=== PATIENT | male | born 1960 | race Asian ===

== ENCOUNTER 2022-12-31 09:27 | Emergency (ER) | payer OTHER ==
[2022-12-31 09:32] VITALS: BP 138/56; PULSE 69; RESP 18; TEMP 97.7; BMI 25.8
[2022-12-31] MEDS ORDERED: ACETAMINOPHEN 325 MG TABLET (FP) PO ONE (12:33)
[2022-12-31] MEDS ORDERED: ACETAMINOPHEN 325 MG TABLET (FP) ONE (12:42)
== END 2022-12-31 15:23 | disposition home or self-care (01) ==
LOC: JER 09:27
DX: M79.605 Pain in left leg (principal)
CPT/HCPCS: 72131-TC; 99284-25

== ENCOUNTER 2024-03-11 13:52 | Emergency (ER) | payer OTHER ==
[2024-03-11 13:58] VITALS: BP 169/71; PULSE 77; RESP 18; TEMP 97.9; BMI 22.6
[2024-03-11] MEDS ORDERED: AMOX TR/POT CLAV 875MG/125MG TABLETS (FP) ONE (15:12)
[2024-03-11] MEDS ORDERED: ACETAMINOPHEN 500 MG TABLET (FP) ONE (15:12)
[2024-03-11] MEDS ORDERED: RABIES VACCINE (PCEC)/PF 2.5 UNIT/VIAL IM ONE (15:13)
[2024-03-11] MEDS: ACETAMINOPHEN 500 MG TABLET (FP) PO ONE (15:20)
[2024-03-11] MEDS: RABIES VACCINE (PCEC)/PF 2.5 UNIT/VIAL IM ONE (15:21)
[2024-03-11] MEDS: AMOX TR/POT CLAV 875MG/125MG TABLETS (FP) PO ONE (15:21)
[2024-03-11] MEDS ORDERED: RABIES IMMUNE GLOBULIN 300 UNITS/1 ML VIAL ONE (16:10)
[2024-03-11] MEDS: RABIES IMMUNE GLOBULIN 300 UNITS/1 ML VIAL IM ONE (16:11)
== END 2024-03-11 17:16 | disposition home or self-care (01) ==
LOC: JERFT 13:52
PROC: 3E0234Z Introduction of Serum, Toxoid and Vaccine into Muscle, Percutaneous Approach (ICD-10-PCS; principal; 2024-03-11)
DX: S61.452A Open bite of left hand, initial encounter (principal); W55.01XA Bitten by cat, initial encounter
CPT/HCPCS: 73130-TC-LT-FY; 90675; 99284-25

== ENCOUNTER 2024-03-14 07:52 | Inpatient (IN) | payer OTHER ==
[2024-03-14] MEDS ORDERED: RABIES VACCINE (PCEC)/PF 2.5 UNIT/VIAL IM ONE (08:51)
[2024-03-14] MEDS ORDERED: DIPHTH,PERTUSS(ACELL),TET 0.5 ML DISP.SYRIN IM ONE (09:00)
[2024-03-14] MEDS: RABIES VACCINE (PCEC)/PF 2.5 UNIT/VIAL IM ONE (09:10)
[2024-03-14] MEDS: DIPHTH,PERTUSS(ACELL),TET 0.5 ML DISP.SYRIN IM ONE (09:10)
[2024-03-14] MEDS ORDERED: AMPICILLIN NA/SULBACTAM NA 3 GM/100 ML BAG IVPB ONE (09:40)
[2024-03-14] MEDS: SODIUM CHLORIDE 1,000 ML IV STA (09:55)
[2024-03-14] MEDS: AMPICILLIN NA/SULBACTAM NA 3 GM in DEXTROSE 5%-WATER 100 ML IVPB ONE (09:55)
[2024-03-14 09:58] LABS: BASO % 0.6 % (0-2.0); EOS % 1.4 % (0-4.5); HEMATOCRIT 43.1 % (35.4-49); HEMOGLOBIN 14.4 GM/dL (11.7-16.9); LYMPH % 16.9 % (8-40); MCH 29.9 pg (25.7-33.7); MCHC 33.5 g/dl (32.0-35.9); MEAN CELL VOLUME 89.2 fl (80-96); MONO % 9.5 % (3.8-10.2); NEUT % 71.6 % (42.8-82.8); PLATELET COUNT 258 10^3/uL (134-434); RBC 4.83 M/mm3 (4.00-5.60); RDW 14.2 % (11.9-15.9); WHITE BLOOD COUNT 10.2 K/mm3 (4.0-10.0)
[2024-03-14 10:05] LABS: INR 0.95 (0.83-1.09); PROTHROMBIN TIME (PATIENT) 10.7 SEC (9.7-13.0)
[2024-03-14 10:08] LABS: ACTIVATED PTT 38.8 SECONDS (25.2-36.5)
[2024-03-14 10:19] LABS: POTASSIUM 3.7 mmol/L (3.5-5.1)
[2024-03-14 10:21] LABS: CALCIUM 9.6 mg/dL (8.5-10.1)
[2024-03-14 10:22] LABS: ALBUMIN 3.8 g/dl (3.4-5.0); BLOOD UREA NITROGEN 13.9 mg/dL (7-18)
[2024-03-14 10:25] LABS: CREATININE 1.1 mg/dL (0.55-1.3)
[2024-03-14 10:26] LABS: BILIRUBIN,TOTAL 0.8 mg/dL (0.2-1); TOT PROT 7.6 g/dl (6.4-8.2)
[2024-03-14] MEDS: KETOROLAC TROMETHAMINE 30 MG/1 ML VIAL IVPUSH ONE (11:47)
[2024-03-14] MEDS: VANCOMYCIN/WATER FOR INJ (PEG) 1,000 MG/200 ML BAG IVPB ONE (11:59)
[2024-03-14] MEDS: INSULIN ASPART SLIDING SCALE (NOVOLOG) 1 VIAL SQ SCH (12:00)
[2024-03-14] MEDS ORDERED: AMPICILLIN NA/SULBACTAM NA 3 GM in SODIUM CHLORIDE 100 ML IVPB SCH (15:00)
[2024-03-14 15:35] VITALS: BMI 25.4
[2024-03-14] MEDS: PIPERACILLIN/TAZOB 3.375 GM 3.375 GM in DEXTROSE 5%-WATER - 50 ML IVPB SCH (17:19)
[2024-03-14] MEDS: hydrALAZINE HCL 50 MG TABLET (FP) PO SCH (21:44)
[2024-03-14] MEDS: ATORVASTATIN CA 40 MG TABLET (FP) PO SCH (21:44)
[2024-03-15] MEDS: ACETAMINOPHEN 325 MG TABLET (FP) PO PRN (06:17)
[2024-03-15] MEDS: HYDROCHLOROTHIAZIDE 25 MG TABLET (FP) PO SCH (09:15)
[2024-03-15] MEDS: CLOPIDOGREL BISULFATE 75 MG TABLET (FP) PO SCH (09:15)
[2024-03-15] MEDS: amLODIPine BESYLATE 10 MG TABLET (FP) PO SCH (09:15)
[2024-03-15] MEDS: ISOSORBIDE MONONITRATE 30 MG TAB.SR.24H (FP) PO SCH (09:15)
[2024-03-15] MEDS: ENOXAPARIN NA (PORCINE) 40 MG/0.4 ML DISP.SYRIN SQ SCH (09:23)
[2024-03-15] MEDS: LOSARTAN POTASSIUM 50 MG TABLET PO SCH (09:25)
[2024-03-15 09:42] LABS: POTASSIUM 3.2 mmol/L (3.5-5.1)
[2024-03-15 09:44] LABS: BASO % 0.6 % (0-2.0); EOS % 2.6 % (0-4.5); HEMATOCRIT 39.9 % (35.4-49); HEMOGLOBIN 13.1 GM/dL (11.7-16.9); LYMPH % 18.8 % (8-40); MCH 29.2 pg (25.7-33.7); MCHC 32.7 g/dl (32.0-35.9); MEAN CELL VOLUME 89.2 fl (80-96); MEAN PLT VOLUME 9.4 fl (7.5-11.1); MONO % 8.8 % (3.8-10.2); NEUT % 69.2 % (42.8-82.8); PLATELET COUNT 238 10^3/uL (134-434); RBC 4.48 M/mm3 (4.00-5.60); RDW 13.9 % (11.9-15.9); WHITE BLOOD COUNT 9.7 K/mm3 (4.0-10.0)
[2024-03-15 10:06] LABS: ALBUMIN 3.3 g/dl (3.4-5.0); BLOOD UREA NITROGEN 10.4 mg/dL (7-18); CALCIUM 8.6 mg/dL (8.5-10.1); MAGNESIUM 2.1 mg/dL (1.8-2.4)
[2024-03-15 10:09] LABS: CREATININE 0.9 mg/dL (0.55-1.3)
[2024-03-15 10:11] LABS: BILIRUBIN,TOTAL 1.1 mg/dL (0.2-1); TOT PROT 6.6 g/dl (6.4-8.2)
[2024-03-15] MEDS: POTASSIUM CHLORIDE ORAL LIQUID 20 MEQ/15 ML PO ONE (15:09)
[2024-03-15] MEDS: LACTOBACILLUS ACIDOPHILUS 1 TABLET PO SCH (15:09)
[2024-03-15] MEDS ORDERED: RABIES IMMUNE GLOBULIN 300 UNITS/1 ML VIAL IM ONE (21:00)
[2024-03-15] MEDS: GABAPENTIN 300 MG CAPSULE PO SCH (21:07)
[2024-03-16 08:52] LABS: HEMATOCRIT 40.8 % (35.4-49); HEMOGLOBIN 13.8 GM/dL (11.7-16.9); MCH 29.9 pg (25.7-33.7); MCHC 33.8 g/dl (32.0-35.9); MEAN CELL VOLUME 88.5 fl (80-96); MEAN PLT VOLUME 9.1 fl (7.5-11.1); PLATELET COUNT 276 10^3/uL (134-434); RBC 4.61 M/mm3 (4.00-5.60); RDW 14.2 % (11.9-15.9); WHITE BLOOD COUNT 7.4 K/mm3 (4.0-10.0)
[2024-03-16 09:16] LABS: POTASSIUM 3.3 mmol/L (3.5-5.1)
[2024-03-16 09:26] LABS: CALCIUM 9.1 mg/dL (8.5-10.1)
[2024-03-16 09:28] LABS: BLOOD UREA NITROGEN 10.3 mg/dL (7-18)
[2024-03-16] MEDS: POTASSIUM CHLORIDE TABS 20 MEQ TABLET.ER (FP) PO SCH (17:25)
[2024-03-16] MEDS: glipiZIDE-XL 2.5 MG TAB.ER.24 PO SCH (18:20)
[2024-03-17 07:29] VITALS: RESP 18
[2024-03-17 10:23] LABS: POTASSIUM 3.5 mmol/L (3.5-5.1)
[2024-03-17 10:28] LABS: BLOOD UREA NITROGEN 9.4 mg/dL (7-18); CALCIUM 8.7 mg/dL (8.5-10.1); MAGNESIUM 2.4 mg/dL (1.8-2.4)
[2024-03-17 10:31] LABS: CREATININE 0.8 mg/dL (0.55-1.3)
[2024-03-18 08:42] LABS: HEMATOCRIT 40.9 % (35.4-49); HEMOGLOBIN 13.5 GM/dL (11.7-16.9); MCH 29.7 pg (25.7-33.7); MCHC 32.9 g/dl (32.0-35.9); MEAN CELL VOLUME 90.1 fl (80-96); MEAN PLT VOLUME 8.6 fl (7.5-11.1); PLATELET COUNT 306 10^3/uL (134-434); RBC 4.54 M/mm3 (4.00-5.60); WHITE BLOOD COUNT 7.8 K/mm3 (4.0-10.0)
[2024-03-18 08:54] LABS: POTASSIUM 3.4 mmol/L (3.5-5.1)
[2024-03-18 09:03] LABS: ALBUMIN 3.4 g/dl (3.4-5.0)
[2024-03-18 09:04] LABS: BILIRUBIN,TOTAL 0.4 mg/dL (0.2-1); BLOOD UREA NITROGEN 9.4 mg/dL (7-18); TOT PROT 6.9 g/dl (6.4-8.2)
[2024-03-18 09:05] LABS: CREATININE 0.9 mg/dL (0.55-1.3)
[2024-03-18] MEDS: RABIES VACCINE (PCEC)/PF 2.5 UNIT/VIAL IM ONE (15:40)
[2024-03-19 08:07] LABS: HEMATOCRIT 39.7 % (35.4-49); HEMOGLOBIN 13.4 GM/dL (11.7-16.9); MCH 29.9 pg (25.7-33.7); MCHC 33.7 g/dl (32.0-35.9); MEAN CELL VOLUME 88.8 fl (80-96); MEAN PLT VOLUME 8.5 fl (7.5-11.1); PLATELET COUNT 325 10^3/uL (134-434); RBC 4.47 M/mm3 (4.00-5.60); RDW 14.6 % (11.9-15.9); WHITE BLOOD COUNT 7.7 K/mm3 (4.0-10.0)
[2024-03-19 08:24] LABS: POTASSIUM 3.7 mmol/L (3.5-5.1)
[2024-03-19 08:30] LABS: ALBUMIN 3.5 g/dl (3.4-5.0); BLOOD UREA NITROGEN 8.9 mg/dL (7-18)
[2024-03-19 08:34] LABS: BILIRUBIN,TOTAL 0.4 mg/dL (0.2-1); TOT PROT 6.9 g/dl (6.4-8.2)
[2024-03-19] MEDS: hydrALAZINE HCL 50 MG TABLET (FP) PO SCH (14:07)
[2024-03-19] MEDS: AMOX TR/POT CLAV 500MG/125MG TABLETS (FP) PO SCH (18:01)
[2024-03-20 08:14] VITALS: BP 146/83; PULSE 79; TEMP 97.9
== END 2024-03-20 12:41 | disposition home or self-care (01) | DRG 383 ==
LOC: JER 07:52 → JERBED 09:33 → J6S 10:56
PROVIDERS: ATTEND Internal Medicine
DX: L03.114 Cellulitis of left upper limb (principal); E11.51 Type 2 diabetes mellitus with diabetic peripheral angiopathy without gangrene; E11.65 Type 2 diabetes mellitus with hyperglycemia; E78.5 Hyperlipidemia, unspecified; I10 Essential (primary) hypertension; I25.10 Atherosclerotic heart disease of native coronary artery without angina pectoris
CPT/HCPCS: 36415; 73130-TC-LT-FY; 73201-TC-RT; 76882-TC-RT-FY; 80048; 80053; 82550; 82962; 83036; 83605; 83735; 84100; 85025; 85027; 85610; 85730; 87040; 90675; 90715; 93005; 93010; 99284-25; 99285-25; Q9967

== ENCOUNTER 2024-03-25 08:39 | Emergency (ER) | payer OTHER ==
[2024-03-25 08:46] VITALS: BP 162/72; PULSE 87; RESP 16; TEMP 97.9; BMI 23.3
[2024-03-25] MEDS ORDERED: RABIES VACCINE (PCEC)/PF 2.5 UNIT/VIAL IM ONE (09:00)
[2024-03-25] MEDS: RABIES VACCINE (PCEC)/PF 2.5 UNIT/VIAL IM ONE (09:00)
== END 2024-03-25 09:30 | disposition home or self-care (01) ==
LOC: JER 08:39
PROC: 3E0234Z Introduction of Serum, Toxoid and Vaccine into Muscle, Percutaneous Approach (ICD-10-PCS; principal; 2024-03-25)
DX: Z29.14 Encounter for prophylactic rabies immune globulin (principal)
CPT/HCPCS: 90471; 90675; 96375; 99281-25